=== PATIENT | male | born 1990 | race Two or more races ===

== ENCOUNTER 2023-07-18 21:28 | Inpatient (IN) | payer MEDICAID ==
[~2023-07-18] VITALS: Ht 180.3 cm; Wt 92.0 kg
[2023-07-18 22:59] LABS: HEMATOCRIT 38.2 % (41-53); HEMOGLOBIN 12.9 g/dL (13.5-17.5); MEAN CORPUSCULAR HEMOGLOBIN 34.1 pg (26.0-34.0); MEAN CORPUSCULAR VOLUME 101 fL (80-100); RED BLOOD CELL COUNT(AUTO) 3.78 MIL/uL (4.50-5.90); WHITE BLOOD COUNT (AUTO) 7.4 K/uL (4.5-11.0)
[2023-07-18 23:00] LABS: BASOPHILS % (AUTO) 0.6 % (0.0-2.0); EOSINOPHILS % (AUTO) 1.6 % (1.0-6.0); LYMPHOCYTES # (AUTO) 1.7 K/uL (1.0-4.8); MEAN CORPUSCULAR HGB CONC 33.7 G/dL (31.0-37.0); MONOCYTES # (AUTO) 0.7 K/uL (0.1-1.0); MONOCYTES % (AUTO) 9.4 % (2.0-9.0); NEUTROPHILS # (AUTO) 4.8 K/uL (1.8-7.7); NEUTROPHILS % (AUTO) 65.4 % (40.0-70.0); PLATELET COUNT (AUTO) 290 K/uL (150-450); RED CELL DISTRIBUTION WIDTH 12.4 % (11.5-14.5)
[2023-07-18 23:11] LABS: ANION GAP 13 mmol/L (8-16); CALCIUM, TOTAL 8.9 mg/dL (8.8-10.5); CARBON DIOXIDE 24 mmol/L (22-29); CHLORIDE 101 mmol/L (98-107); CREATININE 1.21 mg/dL (0.60-1.30); GLOMERULAR FILTR. RATE CALC > 60 mL/min (>60); GLUCOSE,RANDOM 96 mg/dL (70-110); POTASSIUM 3.4 mmol/L (3.5-5.1); SODIUM SERUM 138 mmol/L (136-145); UREA NITROGEN, BLOOD 14 mg/dL (7-18)
[2023-07-18 23:17] LABS: ALANINE AMINOTRANSFERASE 24 U/L (12-78); ALBUMIN 4.1 g/dL (3.4-5.0); ALKALINE PHOSPHATASE 69 U/L (46-116); ASPARTATE AMINOTRANSFERASE 40 U/L (15-37); BILIRUBIN,TOTAL 0.9 mg/dL (0.1-1.0); TOTAL PROTEIN, SERUM 7.6 g/dL (6.4-8.2)
[2023-07-18 23:18] LABS: ALCOHOL, BLOOD (SERUM) < 3 mg/dL (0-10)
[2023-07-19] MEDS ORDERED: MAGNESIUM HYDROXIDE SUSPENSION 30 ML UDCUP PO PRN
[2023-07-19] MEDS ORDERED: ZOLPIDEM TARTRATE 10 MG TABLET PO PRN
[2023-07-19] MEDS ORDERED: GuaiFENesin/D-METHORPHAN [SUGAR-FREE] 200-20MG/10 ML SYRUP UDCUP PO PRN
[2023-07-19] MEDS ORDERED: PROMETHAZINE HCL 25 MG TABLET PO PRN
[2023-07-19] MEDS ORDERED: LOPERAMIDE HCL 2 MG CAPSULE PO PRN
[2023-07-19] MEDS ORDERED: MAG HYDROX/ALUMINUM HYD/SIMETH ES 30 ML SUSPENSION UDCUP PO PRN
[2023-07-19] MEDS ORDERED: TUBERCULIN, PURIFIED PROTEIN DERIVATIVE 5 TU/0.1 ML SYRINGE ID ONE
[2023-07-19] MEDS: LORazepam 2 MG TABLET PO ONE (00:05)
[2023-07-19 00:29] LABS: COVID AG,FIA SOURCE NASAL SWAB
[2023-07-19 00:33] LABS: PH,URINE DRUG SCREEN 5.5 (5.0-8.0)
[2023-07-19 00:40] LABS: ALCOHOL, URINE DRUG SCREEN NEGATIVE (NEGATIVE); AMPHET/METH SCREEN,URINE POSITIVE (NEGATIVE); BARBITURATE SCREEN, URINE NEGATIVE (NEGATIVE); BENZODIAZEPINES SCREEN,URINE NEGATIVE (NEGATIVE); CANNABINOID SCREEN,URINE NEGATIVE (NEGATIVE); COCAINE SCREEN,URINE NEGATIVE (NEGATIVE); METHADONE SCREEN, URINE NEGATIVE (NEGATIVE); OPIATE SCREEN,URINE NEGATIVE (NEGATIVE); PHENCYCLIDINE SCREEN,URINE NEGATIVE (NEGATIVE)
[2023-07-19 00:50] LABS: SARS-COV2 (COVID) ANTIGEN,FIA Negative (Negative)
[2023-07-19 05:00] LABS: FREE T4 (FREE THYROXINE) 1.39 ng/dL (0.76-1.46); THYROID STIMULATING HORMONE 1.42 uIU/mL (0.36-3.74)
[2023-07-19 05:09] LABS: HEMOGLOBIN A1C 4.6 % (3.8-5.6)
[2023-07-19] MEDS: NALTREXONE HCL 50 MG TABLET PO SCH (09:01)
[2023-07-19] MEDS: FOLIC ACID 1 MG TABLET PO SCH (09:01)
[2023-07-19] MEDS: THIAMINE 100 MG TABLET PO SCH (09:01)
[2023-07-19] MEDS: HydrOXYzine PAMOATE 50 MG CAPSULE PO PRN (09:01)
[2023-07-19] MEDS: OMEGA-3/DHA/EPA/FISH OIL 1,000 MG CAPSULE PO SCH (09:02)
[2023-07-19] MEDS: MULTIVITAMINS WITH MINERALS, THERAPEUTIC TABLET PO SCH (09:02)
[2023-07-19] MEDS: OLANZapine 5 MG RAPDIS TABLET PO PRN (13:08)
[2023-07-19 13:28] VITALS: BP 141/75; PULSE 101; RESP 18; TEMP 97.8
[2023-07-19] MEDS: MELATONIN 5 MG TABLET PO SCH (20:44)
[2023-07-19] MEDS: OLANZapine 5 MG RAPDIS TABLET PO SCH (20:45)
[2023-07-19 21:56] VITALS: BP 102/57; PULSE 71; RESP 19; TEMP 98.9
[2023-07-20 08:06] LABS: TREPONEMA PALLIDUM AB -TPPA Reactive (Non Reactive)
[2023-07-20 08:50] VITALS: BP 94/60; PULSE 62; RESP 18; TEMP 97.4
[2023-07-20 20:37] VITALS: BP 125/76; PULSE 71; RESP 18; TEMP 97.7
[2023-07-20] MEDS: OLANZapine 10 MG RAPDIS TABLET PO SCH (21:18)
[2023-07-21] MEDS: ATOMOXETINE HCL 40 MG CAPSULE PO SCH (09:35)
[2023-07-21] MEDS: PENICILLIN G BENZATHINE LA 2,400,000 UNITS/4 ML SYRINGE IM ONE (10:51)
[2023-07-21 11:09] VITALS: BP 100/57; PULSE 64; RESP 18; TEMP 97.9
[2023-07-21 21:59] VITALS: BP 117/61; PULSE 67; RESP 18; TEMP 96.5
[2023-07-22] MEDS: ATOMOXETINE HCL 60 MG CAPSULE PO SCH (09:12)
[2023-07-22 09:45] VITALS: BP 113/78; PULSE 58; RESP 17; TEMP 97.3
[2023-07-22 22:26] VITALS: BP 102/56; PULSE 69; RESP 17; TEMP 98
[2023-07-23 06:06] LABS: HIV 1-2 SCREEN 4TH GEN W/RFLX Non Reactive (Non Reactive)
[2023-07-23 09:09] VITALS: BP 104/71; PULSE 64; RESP 18; TEMP 97.4
[2023-07-23] MEDS: ATOMOXETINE HCL 40 MG CAPSULE PO SCH (09:26)
[2023-07-23 22:35] VITALS: BP 100/62; PULSE 95; RESP 18; TEMP 98.1
[2023-07-24 09:28] VITALS: BP 105/60; PULSE 62; RESP 17; TEMP 97.8
[2023-07-24 20:54] VITALS: BP 127/74; PULSE 80; RESP 18; TEMP 98.4
[2023-07-25 10:43] VITALS: BP 111/64; PULSE 76; RESP 18; TEMP 97.5
[2023-07-25] MEDS: ACETAMINOPHEN 325 MG TABLET PO PRN (16:18)
[2023-07-25 20:29] VITALS: BP 124/82; PULSE 76; RESP 18; TEMP 97.1
[2023-07-25 21:01] VITALS: BP 124/82; PULSE 76; RESP 18; TEMP 97.1
[2023-07-25 21:29] VITALS: RESP 18
[2023-07-26] MEDS: ATOMOXETINE HCL 25 MG CAPSULE PO SCH (10:04)
[2023-07-26 10:45] VITALS: BP 110/57; PULSE 125; RESP 18; TEMP 101.9
[2023-07-26] MEDS ORDERED: NALT50TA33 PO (11:11)
[2023-07-26] MEDS ORDERED: OLAN10TA26 PO (11:11)
[2023-07-26] MEDS ORDERED: ATOM25CA8 PO (11:11)
[2023-07-26] MEDS ORDERED: MELA5TAB40 PO (11:11)
[2023-07-26] MEDS ORDERED: OMEG-135 PO (11:11)
[2023-07-26 11:18] LABS: COVID AG,FIA SOURCE NASAL SWAB
[2023-07-26 11:39] LABS: SARS-COV2 (COVID) ANTIGEN,FIA Negative (Negative)
[2023-07-26 17:17] LABS: INFLUENZA TYPE A NEGATIVE FOR TYPE A (NEGATIVE); INFLUENZA TYPE B NEGATIVE FOR TYPE B (NEGATIVE)
== END 2023-07-26 14:34 | disposition home or self-care (01) | DRG 750 ==
LOC: EMS 21:28 → 3EI 07-19 09:56
PROVIDERS: ADMIT Psychiatry & Neurology Psychiatry; ATTEND Psychiatry & Neurology Psychiatry
DX: F20.0 Paranoid schizophrenia (principal); D64.9 Anemia, unspecified; F32.A Depression, unspecified; F17.200 Nicotine dependence, unspecified, uncomplicated; D72.829 Elevated white blood cell count, unspecified; Z20.822 Contact with and (suspected) exposure to COVID-19; F15.10 Other stimulant abuse, uncomplicated; F98.8 Other specified behavioral and emotional disorders with onset usually occurring in childhood and adolescence; Z55.9 Problems related to education and literacy, unspecified; Z59.00 Homelessness unspecified; Z63.9 Problem related to primary support group, unspecified; Z65.3 Problems related to other legal circumstances
CPT/HCPCS: 80053; 80061; 80307; 83036; 84439; 84443; 85025; 86592; 86593; 86780; 87389; 87491; 87591; 87804; 99285; G0480; J0561; Q9967